=== PATIENT | female | born 1950 ===

== ENCOUNTER 2016-09-08 08:28 | Day surgery (SDC) | payer MEDICARE, OTHER ==
[2016-09-04 09:45] VITALS: BMI 29.2
[2016-09-08 09:17] VITALS: RESP 18
[2016-09-08] MEDS ORDERED: Propofol 10 mg/ml Inj (20 ML) ONE (09:39)
[2016-09-08] MEDS ORDERED: Midazolam 2 MG/2 ML VIAL ONE (09:39)
[2016-09-08] MEDS ORDERED: Succinylcholine 200 mg/10 ml Inj IV ONE (09:48)
[2016-09-08] MEDS ORDERED: Oxytocin 10 Units/ml Inj ONE (09:50)
[2016-09-08] MEDS ORDERED: Silver Nitrate Topical - Stick ONE (09:50)
[2016-09-08] MEDS ORDERED: Strong Iodine Topical Sol. 5%-10% ONE (10:09)
[2016-09-08] MEDS ORDERED: Lidocaine 2% w Epi 1:100,000 Inj IJ ONE (10:10)
[2016-09-08] MEDS ORDERED: Ferric Subsulfate Sol(60 mL) ONE ×2 (10:10→11:18)
[2016-09-08] MEDS ORDERED: Lactated Ringer's 1,000 ML IV ONE (10:55)
--- NOTE | 2016-09-08 12:29 | OP ---
PROCEDURE DATE: 09/08/2016 PREOPERATIVE DIAGNOSIS: Persistent endometrial fluid on 2 ultrasounds, unable to tolerate endometria l biopsy in the office, stenotic cervix. POSTOPERATIVE DIAGNOSIS: Persistent endometrial fluid on 2 ultrasounds, unable to tolerate endometri al biopsy in the office, stenotic cervix. OPERATION PERFORMED: LEEP procedure. SURGEON: Misty Jasso MD ANESTHESIA: General administered by Dr. Perez. ESTIMATED BLOOD LOSS: Minimal. The patient was given approximately 500 mL of D5 LR intraoperatively. OPERATIVE FINDINGS: A stenotic cervix. Atrophic vaginal wall. Anteverted uterus. No adnexal bouchra s. Atrophic vaginal epithelium. PROCEDURE: After informed consent was obtained, the patient was taken to the operating room. She wa s given general anesthesia. She was placed in a dorsal lithotomy position. An insulated speculum wa s inserted in the vagina. Cervix was visualized and noted to be stenotic. We attempted to dilate th e cervix with traditional dilators. We were unable to do so. We then proceeded to use lacrimal duct dilator; we were unable to do so. A small LEEP loop electrode was then used to excise the stenotic portion of the cervix. We used a 10 mm x 10 mm loop electrode and we tried to identify the endocervi cam canal, we were unable to do so. We attempted to dilate the patient will lacrimal duct dilators. We attempted traditional dilators and the cervix remained stenotic. At that point, the decision to terminate the procedure was made. The patient was awakened from anesthesia. The LEEP was cauterized with ball cautery. Hemostasis was noted. All instruments removed from the vagina. The patient was awakened from general anesthesia and taken to recovery room in awake and stable condition. Mallorie Jasso MD cc: [phone] TT: 09/08/2016 12:28:47 jannet
[2016-09-08] MEDS ORDERED: Oxycodone/Acetaminophen 5/325 mg Tab PO ONE (13:19)
[2016-09-08 14:23] VITALS: O2SAT 98
[2016-09-08 15:14] VITALS: BP 117/56; PULSE 61; TEMP 97.4
--- NOTE | 2016-10-18 12:29 | CP.SDSHP ---
Same Day Surgery [facility] - Allergies Allergies: Allergies No Known Allergies Allergy (Verified 02/09/16 11:17) Short Stay Discharge - Short Stay Discharge Admitting Diagnosis/Reason for Visit: N85.9 N88.2 Referrals: Mann Fraire MD [Primary Care Provider] - Progress Note/Discharge Note with Instructions: doing well f/u in one week NPV no heavy lifting percocet and motrin as needd
== END 2016-09-08 15:38 | disposition home or self-care (01) ==
LOC: H.OPSURG 08:28
PROVIDERS: ATTEND Obstetrics & Gynecology Gynecology
DX: N85.9 Noninflammatory disorder of uterus, unspecified (principal); N88.2 Stricture and stenosis of cervix uteri; E11.9 Type 2 diabetes mellitus without complications; I10 Essential (primary) hypertension; M19.90 Unspecified osteoarthritis, unspecified site
CPT/HCPCS: 57522; 82948; 88305; J0330; J2001; J2250; J2405; J2704; J3010; J7030; J7120